=== PATIENT | female | born 1990 | race African-American/Black ===

== ENCOUNTER → 2018-05-31 | Emergency (ER) | payer BC ==
[~2018-05-31] VITALS: Ht 167.6 cm; Wt 56.7 kg
[~2018-05-31] MED LIST: KETOROLAC TROMETHAMINE INJ 30 MG/ML VIAL ONE; KETOROLAC TROMETHAMINE INJ 60 MG/2 ML VIAL IM ONE
--- NOTE | 2018-05-31 07:58 | NUR ---
PT BIB SELF c/o SOB x 3 days , cough states " I cant seem to take a breath" very anxious crying. alert and oriented x 4, verbally responsive and able to make needs known. on room air sating @100%, breathing evenly and unlabored. MD at bedside theodora cavazos. kept comfortable, will continue to monitor accordingly.
--- NOTE | 2018-05-31 08:00 | NUR ---
urine collected and sent to lab.
--- NOTE | 2018-05-31 08:21 | NUR ---
technical instructor at bedside for x-ray.
[2018-05-31 08:51] VITALS: BP 124/70
--- NOTE | 2018-05-31 08:58 | NUR ---
Patient discharged to home in stable condition. Written and verbal after care instructions given. Patient verbalizes understanding of instruction.
== END | disposition home or self-care (01) ==
LOC: ER 07:32
DX: J69.0 Pneumonitis due to inhalation of food and vomit (principal); R07.89 Other chest pain; Z98.890 Other specified postprocedural states; Z90.89 Acquired absence of other organs
CPT/HCPCS: 71045; 84703; 93005; 96372; 99284; J1885; Z7610; A4606

== ENCOUNTER 2019-07-03 09:36 | Emergency (ER) | payer BC ==
[~2019-07-03] VITALS: Ht 167.6 cm; Wt 54.4 kg
[2019-07-03] MEDS ORDERED: KETOROLAC TROMETHAMINE INJ 60 MG/2 ML VIAL IM ONE ×2 (09:50→10:00)
[2019-07-03] MEDS ORDERED: LORAZEPAM INJ 2 MG/ML VIAL ONE (09:50)
--- NOTE | 2019-07-03 09:50 | NUR ---
RECEIVED VERBAL ORDER OF TORADOL 60MG IM AND LORAZEPAM 1MG IM. CARRIED OUT
[2019-07-03 09:51] VITALS: BP 132/53
--- NOTE | 2019-07-03 09:52 | NUR ---
PATIENT STATES "I'M NOT , I'M ON CONTROL PILLS".
[2019-07-03] MEDS ORDERED: LORAZEPAM INJ 2 MG/ML VIAL IM ONE (10:00)
== END 2019-07-03 11:20 | disposition home or self-care (01) ==
LOC: ER 09:40
DX: M25.462 Effusion, left knee (principal); M79.605 Pain in left leg; Z98.890 Other specified postprocedural states; Z90.89 Acquired absence of other organs; V19.88XA Pedal cyclist (driver) (passenger) injured in other specified transport accidents, initial encounter; Y93.43 Activity, gymnastics; Y92.89 Other specified places as the place of occurrence of the external cause; Y99.8 Other external cause status
CPT/HCPCS: 73564; 96372 ×2; 99283; J1885; J2060